=== PATIENT | male | born 1950 | race Native Hawaiian/Other Pacific Islander ===

== ENCOUNTER 2019-10-18 19:13 | Emergency (ER) | payer OTHER ==
[~2019-10-18] VITALS: Ht 167.6 cm; Wt 132.9 kg
[~2019-10-18 19:13] MED LIST: ALBU0.0813 IN; DOCU SOFT100 MG PO; FURO40TA93 PO; IBUPROFEN 200200 MG PO; LORA0.5T17 PO; MELOXICAM7.5 MG PO; OXYGEN; PAROXETINE10 MG PO; POTA20TA4 PO; SILTUSSIN100 MG/5 M PO; TEMA15CA19 PO; TOPIRAMATE100 MG PO; VALSARTAN80 MG PO; VITAMIN B123000 MCG SL
[2019-10-18] MEDS ORDERED: FURO20TA67 PO (19:34)
[2019-10-18] MEDS ORDERED: ACID REDUCER20 MG PO (19:34)
[2019-10-18] MEDS ORDERED: MULT VITAMI1 PO (19:35)
[2019-10-18] MEDS ORDERED: GENERLAC10 GM/15 M PO (19:39)
[2019-10-18] MEDS ORDERED: RISP0.5T2 PO (19:40)
[2019-10-18] MEDS ORDERED: OXCARBAZEPIN600 MG PO (19:40)
[2019-10-18] MEDS ORDERED: ATIVAN2 M1 PO (19:41)
[2019-10-18] MEDS ORDERED: DOCU SOFT100 MG PO (19:41)
[2019-10-18] MEDS ORDERED: SYSTANE CONTACTS SOO IO (19:42)
[2019-10-18] MEDS ORDERED: PERPHENAZINE4 MG PO (19:45)
[2019-10-18 20:13] LABS: POTASSIUM 3.6 mmol/L (3.6-5.2)
[2019-10-18 20:15] LABS: PLATELET COUNT 249 K/uL (142-355)
[2019-10-18 20:28] VITALS: BP 159/78; TEMP 98.4
== END 2019-10-18 20:29 | disposition still patient (30) ==
LOC: ED 19:13
PROVIDERS: Hospitalist
DX: F25.8 Other schizoaffective disorders (principal); R45.851 Suicidal ideations; F03.90 Unspecified dementia, unspecified severity, without behavioral disturbance, psychotic disturbance, mood disturbance, and anxiety; Z04.6 Encounter for general psychiatric examination, requested by authority; Z03.818 Encounter for observation for suspected exposure to other biological agents ruled out
CPT/HCPCS: 36415; 80053; 85027; 87635; 93005; 99283; U0002